=== PATIENT | male | born 1990 | race Caucasian/White ===

== ENCOUNTER 2019-04-08 18:57 | Emergency (ER) | payer SELFPAY ==
[2019-04-08 19:06] VITALS: BP 131/75
--- NOTE | 2019-04-08 19:06 | Event Note ---
ED Screening Note ED Screening Note: states he has had difficulty urinating that began a couple hours ago no dysuria c/o left flank and LLQ pain no N/V/D normal BM today no pMHx no allergies to meds no smoker no drinker no drug use This initial assessment/diagnostic orders/clinical plan/treatment(s) is/are subject to change based on patients health status, clinical progression and re- assessment by fellow clinical providers in the ED. Further treatment and workup at subsequent clinical providers discretion. Patient/guardian urged not to elope from the ED as their condition may be serious if not clinically assessed and managed. Initial orders include: UA, CT abd/pelvis, labs
--- NOTE | 2019-04-08 20:47 | Cat Scan Report ---
CT abdomen pelvis wo con INDICATION: left flank,abdominal pain ,constipation, x 3 days. patient states he was informed of possible prostat e cancer by his provider.. TECHNIQUE: All CT scans at this location are performed using CT dose reduction for ALARA by means of automated e xposure control. COMPARISON: None available. FINDINGS: No acute disease in the lung bases. Liver, gallbladder, spleen, pancreas, kidneys and adrenals are ne gative. Abdominal aorta is normal in size. No adenopathy. Pelvis Normal appendix. Urinary bladder and distal ureters are negative. No free fluid or inflammation. No s ignificant bowel abnormalities. No acute skeletal lesions. IMPRESSION: 1. No acute abnormalities. Signer Name: Porfirio Thompson MD Signed: 04/08/2019 8:43 PM Workstation Name: [id number]
== END 2019-04-08 19:50 | disposition left against medical advice (07) ==
LOC: ED 18:57
DX: R30.0 Dysuria (principal); Z53.21 Procedure and treatment not carried out due to patient leaving prior to being seen by health care provider
CPT/HCPCS: 74176